=== PATIENT | female | born 1990 | race Caucasian/White ===

== ENCOUNTER 2017-06-05 04:29 | Emergency (ER) | payer MEDICAID ==
[~2017-06-05] VITALS: Ht 170.2 cm; Wt 68.2 kg
[2017-06-05 07:38] VITALS: BP 111/82
== END 2017-06-05 07:46 | disposition home or self-care (01) ==
LOC: ED 04:29
DX: O21.1 Hyperemesis gravidarum with metabolic disturbance (principal); Z3A.29 29 weeks gestation of pregnancy; O99.89 Other specified diseases and conditions complicating pregnancy, childbirth and the puerperium; R07.9 Chest pain, unspecified
CPT/HCPCS: J2550; J2765; J7030

== ENCOUNTER → 2018-08-20 | Outpatient (CLI) | payer OTHER | LOC: RAD 08:45 | DX: E06.3 Autoimmune thyroiditis (principal); E04.1 Nontoxic single thyroid nodule; R94.6 Abnormal results of thyroid function studies ==